=== PATIENT | female | born 2000 | race Caucasian/White ===

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

== ENCOUNTER 2021-09-08 11:39 | Emergency (ER) | payer MEDICAID ==
[~2021-09-08] VITALS: Ht 165.1 cm; Wt 71.0 kg
[2021-09-08 12:15] VITALS: BP 110/57
[2021-09-08] MEDS ORDERED: HYDROCODONE/ACETAMINOPHEN 5/325MG TABLET PO ONE (12:15)
[2021-09-08] MEDS ORDERED: HYDR-4001 MT (14:20)
== END 2021-09-08 15:57 | disposition home or self-care (01) ==
LOC: ER 11:48
DX: S82.832A Other fracture of upper and lower end of left fibula, initial encounter for closed fracture (principal); W01.0XXA Fall on same level from slipping, tripping and stumbling without subsequent striking against object, initial encounter; Y93.51 Activity, roller skating (inline) and skateboarding; Y92.89 Other specified places as the place of occurrence of the external cause
CPT/HCPCS: 29515; 73610; 99283